=== PATIENT | male | born 1950 | race Caucasian/White ===

== ENCOUNTER 2019-05-05 05:00 | Observation (INO) ==
--- NOTE | 2019-03-31 11:19 | PAT Medication Instructions ---
Medication Instructions Date of Service March 31, 2019 Home Medications aspirin 325 mg tablet,delayed release 325 mg PO QAM atorvastatin 20 mg tablet 20 mg PO QAM cholecalciferol (vitamin D3) 4,000 unit capsule 4,000 units PO QAM lisinopril 5 mg tablet 5 mg PO QAM meloxicam 15 mg tablet 15 mg PO QAM metoprolol tartrate 25 mg tablet 25 mg PO QAM ASK your surgeon for instructions meloxicam 15 mg tablet 15 mg PO QAM ASK your prescriber and surgeon aspirin 325 mg tablet,delayed release 325 mg PO QAM DO NOT take the morning of surgery cholecalciferol (vitamin D3) 4,000 unit capsule 4,000 units PO QAM lisinopril 5 mg tablet 5 mg PO QAM Take morning of surgery With a small sip of water, OTHERWISE NOTHING TO EAT OR DRINK AFTER MIDNIGHT: atorvastatin 20 mg tablet 20 mg PO QAM metoprolol tartrate 25 mg tablet 25 mg PO QAM Other Notes If you have any questions please call us at [phone] or [phone] or [phone] or [phone]
--- NOTE | 2019-04-03 09:56 | Anesthesiology Consultation ---
Date of Service April 03, 2019 Assessment & Plan (1) Encounter for pre-operative examination: Chart Review Chart Review: Acceptable Risk for Surgery and Patient seen in Pre Admission Testing Teaching & Discussion Pre-Anesthesia Teaching/Discussion Notes: Instructed NPO after midnight before surgery,except medications with 15 cc of water. Medication instructions provided according to the PAT guidelines. History Surgery Operation Date: 05/05/19 08:50 Proposed Procedures p Right Total Hip Arthroplasty - Chris Potter MD Height/Weight Height: 5 ft 8 in Weight: 86.1 kg Allergies Allergy/AdvReac Type Severity Reaction Status Date / Time No Known Allergies Allergy Verified 03/27/19 11:09 Medications Home Medications Medication Instructions Recorded Confirmed Last Taken aspirin 325 mg tablet,delayed 325 mg PO QAM 02/27/19 03/27/19 Unknown release atorvastatin 20 mg tablet 20 mg PO QAM 02/27/19 03/27/19 Unknown cholecalciferol (vitamin D3) 4,000 4,000 units PO QAM 02/27/19 03/27/19 Unknown unit capsule lisinopril 5 mg tablet 5 mg PO QAM 02/27/19 03/27/19 Unknown meloxicam 15 mg tablet 15 mg PO QAM 02/27/19 03/27/19 Unknown metoprolol tartrate 25 mg tablet 25 mg PO QAM 02/27/19 03/27/19 Unknown Past Medical History Medical History Appendix disease inflamed- under surveillance/no plan for surgical intervention at this time Avascular necrosis of bones of both hips Bifascicular block dating back to at least 08/05/17 History of TIAs 15+ years ago- no issues since Hyperlipidemia Hypertension Osteoarthritis Sleep apnea CPAP Exercise / Class Metabolic Activity II 4-5 Yardwork/Stairs/Walk up hill Past Surgical History Surgical History Amputation of left index finger 2/2 trauma Hx of colonoscopy Hx of foot surgery RIGHT AND LEFT BIG TOE SURGERY Past Anesthesia History No Hx of Anesthesia Complications and No Family Hx of Anesthesia Complications History of PONV No Hx of PONV and No Hx of Motion Sickness Social History Smoking Status: Light tobacco smoker tobacco type: pipe Do You Dip or Chew Tobacco: Yes (1 can/few days - advised NPO AM DOS ) Smoking End Date: QUIT REGULAR USE AGE 40'S/NOW RARE PIPE USE Hx Alcohol Use: Yes Alcohol type: beer alcohol intake frequency: holidays/special occasions only Hx Substance Use: No substance use type: does not use Review of Systems Patient denies chest pain, shortness of breath, dyspnea on exertion, cough, wheezing, palpitations. Physical Exam Vital Signs VITALS BP 127/73 P 70 TEMP 98.4 SP02 96%RA RESP 16 PHYSICAL Full neck and c-spine range of motion. Full TMJ range of motion. TMD 4 finger breaths Mallampati Score 2 Dentition: upper front teeth "glued in" Lungs: clear throughout to auscultation Cardiac: regular rate and rhythm, II/ systolic murmur Spine: normal Carotid arteries: negative bruit Extremities: left ring finger amputation Testing Laboratory Results 04/03/19 10:17 04/03/19 10:17 PT 11.9 Seconds (9.0-12.0) 04/03/19 10:17 INR 1.2 (0.9-1.1) H 04/03/19 10:17 APTT 25.8 Seconds (21.0-31.0) 04/03/19 10:17 Blood Type A Positive 04/03/19 10:17 Antibody Screen NEGATIVE 04/03/19 10:17 Electrocardiogram Date: 04/03/19 NSR at 64bpm. RBBB. LAFB. Bifascicular block. *Bifascicular block dating back to at least 07/2017. S/P stress ECHO 08/2017* Chest X-Ray Date: 04/03/19 The lungs are clear. The heart is normal in size. No pleural effusions. No pneumothorax. Supraspinatus calcific tendinitis seen within the right shoulder. Mild degenerative changes within the mid to lower thoracic spine. IMPRESSION: No acute process. Echocardiogram Date: 05/31/14 LVEF 65%. Grade I DD. TAWNYA. No significant valvular disease. Stress Test Date: 08/23/17 Type: exercise Stress ECHO/EKG negative for inducible ischemia. 93% MPHR. 8.3 METS. Mild aortic valve sclerosis.
--- NOTE | 2019-04-03 10:47 | XRay Report ---
XR chest Pre-admission PA/Lat HISTORY: Preop. COMPARISON: None. FINDINGS: The lungs are clear. The heart is normal in size. No pleural effusions. No pneumothorax. Perez praspinatus calcific tendinitis seen within the right shoulder. Mild degenerative changes within the mid to lower thoracic spine. IMPRESSION: No acute process. ACT 112: Negative or not required by law. Electronically signed by: Pablo Hawk M.D. 04/03/2019 10:46 AM
[2019-04-03 11:39] LABS: Basophils # (auto) 0.01 K/uL (0-0.2); Basophils % (auto) 0.2 %; Eosinophils # (auto) 0.02 K/uL (0-0.5); Eosinophils % (auto) 0.4 %; Hematocrit (blood only) 38.6 % (42-52); Hemoglobin 12.8 g/dL (14.0-18.0); Immature Granulocytes # (auto) 0.03 K/uL (0.00-0.02); Immature Granulocytes % (auto) 0.6 %; Lymphocytes # (auto) 1.03 K/uL (1.2-3.4); Mean Corpuscular Hemoglobin 30.1 pg (25-34); Mean Corpuscular Hgb Conc 33.2 g/dL (32-36); Mean Corpuscular Volume 90.8 fL (80-100); Mean Platelet Volume 10.2 fL (7.4-10.4); Monocytes # (auto) 0.28 K/uL (0.11-0.59); Monocytes % (auto) 5.4 %; Neutrophils # (auto) 3.79 K/uL (1.4-6.5); Neutrophils % (auto) 73.4 %; Platelet Count 296 K/uL (130-400); RDW Standard Deviation 45.8 fL (36.4-46.3); Red Blood Count 4.25 M/uL (4.7-6.1); White Blood Count 5.16 K/uL (4.8-10.8)
[2019-04-03 11:44] LABS: BUN Creatinine Ratio 22.6 (10-20); Blood Urea Nitrogen 16 mg/dl (7-18); C Reactive Protein < 0.29 mg/dl (0-0.29); Calcium 8.9 mg/dl (8.5-10.1); Carbon Dioxide 28 mmol/L (21-32); Chloride 109 mmol/L (98-107); Creatinine Clr Calc Pharmacy 106.3 ml/min; Est GFR (African American) 111.9; Est GFR (Non-African American) 96.5; Glucose 106 mg/dl (70-99); Potassium 4.2 mmol/L (3.5-5.1); Sodium 141 mmol/L (136-145)
[2019-04-03 11:49] LABS: INR 1.2 (0.9-1.1); Partial Thromboplastin Time 25.8 Seconds (21.0-31.0); Prothrombin Time 11.9 Seconds (9.0-12.0)
--- NOTE | 2019-04-03 22:44 | Electrocardiogram Report ---
Test Reason : Blood Pressure : / mmHG Vent. Rate : 064 BPM Atrial Rate : 064 BPM P-R Int : 190 ms QRS Dur : 140 ms QT Int : 444 ms P-R-T Axes : 063 125 039 degrees QTc Int : 458 ms Normal sinus rhythm Right bundle branch block Left posterior fascicular block Bifascicular block Abnormal ECG No previous ECGs available Confirmed by Jefferson Franklin ([id number]) on 04/03/2019 10:44:21 PM Referred By: Chris Potter Confirmed By:Jefferson Franklin
--- NOTE | 2019-04-28 14:50 | History and Physical Report ---
DATE OF ADMISSION: 05/05/2019 CHIEF COMPLAINT: Right hip pain. HISTORY OF PRESENT ILLNESS: The patient is a 69-year-old gentleman from [place] who presents for treatment of his right hip. He has a several year history of progressively increasing pain and discomfort in his right hip. It has gotten significantly worse over the past several months. No injury. He was seen at [facility], had an MRI which revealed avascular necrosis. He presents now for surgical treatment. He says he felt like he had a groin strain that never got better. For a while, he had trouble even getting around even with assistance devices. He has been through all kinds of medicines without any relief. He had an injection which helped temporarily. He limps more as he walks. He would like to have his hip fixed. PAST MEDICAL HISTORY: 1. Hypertension. 2. Elevated cholesterol. 3. Sleep apnea. 4. Diverticulosis. 5. Cervical spondylosis. PAST SURGICAL HISTORY: Include toe surgery. ALLERGIES: None. CURRENT MEDICINES: 1. Baclofen 10 mg 1-2 tablets up to 3 times a day. 2. Lisinopril 5 mg a day. 3. Meloxicam 15 mg a day. 4. Metoprolol 25 mg. 5. Vitamin D3. 6. Lipitor 20 mg. 7. Aspirin 325 mg once a day. SOCIAL HISTORY: A 68-year-old male. He is . Very active. Does not smoke. FAMILY HISTORY: Significant for heart disease, TIA and colon polyps. REVIEW OF HISTORY: Negative for diabetes, neurologic problem, vascular problems or bleeding disorders. Denies any chest pain or shortness of breath. No history of DVT or PE. He has had some injection of steroids but not take an oral steroids. He does drink about 5 drinks per week. PHYSICAL EXAMINATION: GENERAL: Shows a pleasant, middle-aged male, looks to be in pretty good health. HEENT: Benign. NECK: Supple with no lymphadenopathy. LUNGS: Clear to auscultation. HEART: Has regular rate and rhythm. ABDOMEN: Soft, nontender, nondistended. EXTREMITIES: Grossly neurovascularly intact except as follows. Examination of the right hip reveals patient walks with a slightly antalgic gait. Leg lengths clinically appear equal. He has got no knee effusion. He does have pain with hip rotation, particularly internal rotation. He can internally rotate to neutral. Negative straight leg raise. He is neurologically intact. X-RAYS: X-rays of the right hip were reviewed. Shows evidence of a skeletally mature patient. The AP film looks pretty normal. On the lateral, there is a subchondral fracture line below the femoral head with a little bit of collapse. MRI: MRI of the pelvis from [facility] was reviewed. Shows bilateral hip AVN. The right side was markedly worse than the left. He has got subchondral collapse. Large hip joint effusion. He has got significant bone marrow edema. Fairly localized disease on the left side. ASSESSMENT: A 68-year-old male with bilateral hip avascular necrosis, right side quite a bit more symptomatic than the left. He has undergone a collapse on the right side. He has failed conservative treatment and would like to have his hip replaced. PLAN: We talked about treatment options. We are going to proceed with right total hip replacement. The risks and benefits of this procedure were explained to the patient including but not limited to DVT, PE, , infection, neurological injury, vascular injury, bleeding problem, pain, limited range of motion, stiffness, failure to relieve symptoms, incomplete relief of symptoms, need for further surgery in future, fracture, leg length inequality, nerve palsy, dislocation, etc. The patient understands and desires to proceed. Informed consent was obtained. We did talk to him about taking his metoprolol on the morning of surgery and holding the Mobic 2 weeks preop. We would like to hold his lisinopril the morning of surgery as well. He is planning to be discharged to home.
[2019-05-05] MEDS ORDERED: METOCLOPRAMIDE HCL 10 MG TABLET PO SCH (06:00)
[2019-05-05] MEDS ORDERED: CEFAZOLIN 2000MG 2,000 MG/15 ML SYR IV SCH (06:00)
[2019-05-05] MEDS ORDERED: FAMOTIDINE 20 MG TAB PO SCH (06:00)
[2019-05-05] MEDS ORDERED: TRANEXAMIC ACID 1,000 MG **IV Intra-op IV SCH (06:00)
[2019-05-05] MEDS ORDERED: LR 500ML BOLUS, THEN 15ML/HR IV SCH (06:00)
[2019-05-05] MEDS ORDERED: SCOPOLAMINE 1.5 MG TDSY TD SCH (06:00)
[2019-05-05] MEDS ORDERED: LR 60ML/HR IV SCH (06:00)
[2019-05-05] MEDS ORDERED: GABAPENTIN 300 MG CAP PO SCH (06:00)
[2019-05-05] MEDS ORDERED: ACETAMINOPHEN 500 MG TAB PO SCH (06:00)
[2019-05-05] MEDS ORDERED: BUPIVACAINE 0.5 % 5 MG/1 ML PF 10ML VIAL ONE (06:16)
[2019-05-05] MEDS ORDERED: PROPOFOL IV EMULSION 10 MG/ML 20 ML VIAL IV ONE ×3 (06:32→08:38)
[2019-05-05] MEDS ORDERED: ONDANSETRON INJ 2 MG/ML 2 ML VIAL ONE (06:32)
[2019-05-05] MEDS ORDERED: MIDAZOLAM HCL 1 MG/ML 2ML VIAL ONE (06:32)
[2019-05-05] MEDS ORDERED: LIDOCAINE HCL 2% 2 ML VIAL/AMP(20MG/ML) INFIL ONE (06:32)
[2019-05-05] MEDS ORDERED: DEXAMETHASONE SOD INJ 4 MG/ML VIAL ONE ×2 (06:32→07:12)
[2019-05-05] MEDS ORDERED: fentaNYL citrate 100 MCG/2 ML VIAL ONE (06:32)
[2019-05-05] MEDS ORDERED: MoRPHine SULFATE PF 1 MG/ML 10 ML AMP/VIAL ONE (06:34)
[2019-05-05] MEDS ORDERED: BACITRACIN INJ 50,000 UNIT VIAL ONE (06:37)
[2019-05-05] MEDS ORDERED: BUPIVACAINE/EPINEPHRINE 0.5% MPF 1:200,000 10 ML VIAL ONE (06:38)
[2019-05-05] MEDS ORDERED: LACTATED RINGER'S 500 ML IV PRN (06:52)
[2019-05-05] MEDS ORDERED: DiphenhydrAMINE HCL 50 MG/ML VIAL IV PRN (06:52)
[2019-05-05] MEDS ORDERED: ePHEDrine sulfate 50 MG/ML AMP IV PRN (06:52)
[2019-05-05] MEDS ORDERED: NALBUPHINE HCL INJ 10 MG/ML AMP IV PRN (06:52)
[2019-05-05] MEDS ORDERED: NALOXONE HCL 0.4 MG/1 ML VIAL/CARP IV PRN ×2 (06:52→09:43)
[2019-05-05] MEDS ORDERED: NALOXONE HCL 1 MG in SODIUM CHLORIDE 0.9% 1000ML 1,000 ML IV PRN (06:52)
[2019-05-05] MEDS ORDERED: MoRPHine SULFATE PF 1 MG/ML 10 ML AMP/VIAL INT SPINAL ONE (06:52)
[2019-05-05] MEDS ORDERED: NALOXONE HCL 0.08 MG in SYRINGE 1.8 ML IV PRN (06:52)
[2019-05-05] MEDS ORDERED: ONDANSETRON INJ 2 MG/ML 2 ML VIAL IV PRN ×2 (06:52→09:43)
[2019-05-05] MEDS ORDERED: MEPERIDINE HCL 25 MG/ML CARP IV PRN (06:52)
--- NOTE | 2019-05-05 06:52 | History & Physical Bridge Note ---
Date of Service May 05, 2019 History & Physical Bridge Note I have examined the patient, reviewed the History & Physical and in the interval since the performance of the History & Physical I have noted the following changes of clinical significance: no changes noted
[2019-05-05] MEDS ORDERED: DC INTRASPINAL MORPHINE SCH (07:00)
[2019-05-05] MEDS ORDERED: NO NARCOTICS OR SEDATIVES SCH (07:00)
[2019-05-05] MEDS ORDERED: SODIUM CHLORIDE 0.9% 1000ML 1,000 ML IV SCH (07:00)
--- NOTE | 2019-05-05 08:32 | Post Operative Brief Note ---
PG Immediate Post Op with CF Date of Surgery May 05, 2019 Pre & Post Diagnosis Operation Date: 05/05/19 07:00 Pre-Op Diagnosis: Right Hip Avascular Necrosis Post-Op Diagnosis: Right Hip Avascular Necrosis I identified the patient and participated in the time-out.: Yes Procedure Operation Date: 05/05/19 07:00 Actual Procedures p Right Total Hip Arthroplasty--Uncemented(Right) - Chris Potter MD Surgeon Chris Potter MD Revenue Field Auditor [place], PATTI Estimated Blood Loss 250 Findings Consistent with Post-Op Diagnosis Fluids 2000 cc Specimens Specimen Description: A. Right Femoral Head Drains Lomeli Catheter (A 16 [place] lomeli catheter was inserted by MAX Bhagat, without difficulty, clear yellow urine obtained, output to be monitored by Anesthesia.) Anesthesia Type Spinal MAC Complications none Disposition Accompanied Patient To Recovery: Yes Disposition: Recovery Room
--- NOTE | 2019-05-05 09:03 | XRay Report ---
XR hip 1V RT w pelvis CLINICAL HISTORY: 69 years-old Male presenting with IN PACU - A/P PELVIS and LATERAL HIP . TECHNIQUE: Single frontal view of the pelvis and crosstable lateral view of the right hip were obtain ed. COMPARISON: 02/27/2019. FINDINGS: There has been interval postsurgical changes of total right hip arthroplasty. Expected soft tissue em physema. No malalignment. No periprosthetic fracture or lucency. Overlying skin yoli in the latera l right thigh. The visualized portion of the pelvis intact with exclusion of the iliac wings from the [id number]. Left hip joint congruent and without advanced degenerative change. IMPRESSION: Expected postsurgical appearance status post total right hip arthroplasty. ACT 112: Negative or not required by law. Electronically signed by: Amauri Dia M.D. 05/05/2019 9:01 AM
--- NOTE | 2019-05-05 09:13 | Anesthesiology Progress Note ---
Date of Service May 05, 2019 Anesthesia Post Procedure Vital Signs Vital Signs: Temp Pulse Pulse Resp BP Pulse Ox 05/05/19 09:08 61 12 103/58 L 95 05/05/19 09:00 62 18 96/55 L 94 05/05/19 08:50 66 18 103/56 L 96 05/05/19 08:40 72 18 106/55 L 100 05/05/19 08:33 97.9 F 74 18 105/60 99 05/05/19 05:39 98.4 F 70 18 132/76 95 Transfer of Care Handoff Completed per policy Notes Mental Status: alert / awake / arousable and participated in evaluation Patient Amnestic to Procedure: Yes Nausea / Vomiting: adequately controlled Pain: adequately controlled Airway Patency, RR, SpO2: stable & adequate BP & HR: stable & adequate Hydration State: stable & adequate Neuraxial Anesthesia: was administered and sensory block is resolving Anesthetic Complications: no major complications apparent and Pt Satisfied with anesthetic care
[2019-05-05] MEDS: SODIUM CHLORIDE 0.9% 1000ML 1,000 ML IV SCH ×2 (09:30→22:04)
[2019-05-05] MEDS ORDERED: HYDROmorphone INJ 0.5 MG/0.5 ML SYR IV PRN (09:43)
[2019-05-05] MEDS ORDERED: bisacodyL 10 MG SUPP PR PRN (09:43)
[2019-05-05] MEDS ORDERED: TRAMADOL HCL 50 MG TABLET PO PRN (09:43)
[2019-05-05] MEDS ORDERED: METOCLOPRAMIDE HCL INJ 5 MG/ML 2 ML VIAL IV PRN (09:43)
[2019-05-05] MEDS ORDERED: ALUMINUM/MAGNESIUM SUSP 30 ML UDC PO PRN (09:43)
[2019-05-05] MEDS ORDERED: TAMSULOSIN HCL 0.4 MG CAP PO PRN (09:43)
[2019-05-05] MEDS ORDERED: MAGNESIUM HYDROXIDE SUSP 30 ML UDC PO PRN (09:43)
[2019-05-05] MEDS: METOPROLOL TARTRATE 25 MG TAB PO SCH (10:06)
[2019-05-05] MEDS: ATORVASTATIN 20 MG TAB PO SCH (10:06)
[2019-05-05] MEDS: lisinopriL 5 MG TAB PO SCH (10:07)
[2019-05-05] MEDS: DOCUSATE SODIUM 100 MG CAP PO SCH ×2 (10:33→22:04)
[2019-05-05] MEDS: CHOLECALCIFEROL 1,000 UNITS 25 MCG TAB PO SCH (10:33)
[2019-05-05] MEDS: MULTIVITAMIN TAB PO SCH (10:33)
[2019-05-05] MEDS: ASPIRIN 81 MG ECTAB PO SCH ×2 (10:33→22:04)
[2019-05-05] MEDS ORDERED: INFLUENZA Vaccine HIGH DOSE 65+yrs 0.5 mL Syr IM ONE (10:45)
[2019-05-05] MEDS: KETOROLAC TROMETHAMINE 15 MG/ML VIAL IV SCH ×3 (12:34→23:11)
--- NOTE | 2019-05-05 13:30 | Operative Report ---
Post Operative Report Pre & Post Diagnosis Operation Date: 05/05/19 07:00 Pre-Op Diagnosis: Right Hip Avascular Necrosis Post-Op Diagnosis: Right Hip Avascular Necrosis I identified the patient and participated in the time-out.: Yes Procedure Operation Date: 05/05/19 07:00 Actual Procedures p Right Total Hip Arthroplasty--Uncemented(Right) - Chris Potter MD Surgeon Chris Potter MD Information Management Manager [place], PAC Estimated Blood Loss 250 Findings Consistent with Post-Op Diagnosis Operative findings revealed the appearance of avascular necrosis with subchondral fracture and a soft articular surface which was ballotable. He had a moderate-sized joint effusion. Not a lot of osteophyte formation. Fluids 2000 cc. Specimens Right femoral head sent for pathology. Drains None. Anesthesia Type Spinal MAC Complications none Disposition Accompanied Patient To Recovery: Yes Disposition: Recovery Room Indications Patient is a 69-year-old gentleman is had a several year history of increasing right hip pain discomfort. Is been through extensive conservative treatment. He had x-rays which were initially pretty normal and then an MRI which showed a pretty extensive avascular necrosis of the femoral head. It shows subchondral fracture and collapse. He will see he had a significant joint effusion. Patient had failed conservative treatment elected proceed with surgical treatment. Description of Procedure Operative implants consist of: 1. Biomet size 54 G7 acetabular shell. 2. 6.5 cancellus acetabular screws 1 of 35 mm in length and 1 of 30 mm length. 3. An apex hole eliminator. 4. Highly cross-linked polyethylene liner with a 54 mm outer diameter and 36 mm inner diameter with a rodriguez placed inferior and posterior. 5. Size 12 [place] Corail KLA femoral stem. 6. +5/36 mm ceramic articular ball. Patient was taken to the operating room identified and placed on the operating table supine position protectors were properly padded. IV antibiotics arrived by anesthesia team. Spinal anesthetic had been implemented holding area. Walker catheter was placed in sterile fashion with the patient then placed in the left lateral decubitus position. Axillary roll was placed. The Stulberg hip positioner was used for positioning. The right hip and leg were then prepped and draped in usual sterile fashion. A posterior lateral approach to the right hip was then performed to a curvilinear incision centered over the greater trochanter. Sharp dissection was gone through subcutaneous tissue down below the IT band gluteal fascia the IT band gluteal fascia were incised longitudinally in line with skin incision. The underlying greater trochanteric bursa was then excised. The piriformis, external rotators, and posterior capsule were then released from the posterior aspect of the hip joint as a single layer. Great care was taken throughout the procedure to protect the sciatic nerve at all times. Hip was internally rotated and dislocated. Femoral neck osteotomy cut was made with Final Cut 15 mm above the lesser trochanter. Femoral head was removed and sent for pathology. The femur was retracted anteriorly. Attention drawn the acetabulum. The acetabular labrum was excised. The pulmonary fat was excised. Sequential reaming the acetabular was then performed performed again with size 45 and progressing up to 53. A 54 mm Biomet G7 acetabular shell was then placed in about 40 degrees lateral opening and 20 degrees of anteversion. It was fixed with two 6.5 cancellus acetabular screws. A trial liner was placed. Attention then drawn the femur. Proximal femur was entered with a cookie-cutter followed by canal finder. I then broached begin the size 8 and progressing up to a 12. We got excellent fitted 12. Calcar reamer was used smooth and off the calcar. I then trialed the hip and the +5 articular ball we created full stability in extension and external rotation and flexion to 90 degrees internal rotation over 50 degrees. Leg lengths seemed appropriate. We elect to place these implants. I did place a rodriguez inferior and posterior to maximize his stability in flexion. All trial implants were removed. An apex hole eliminator was placed. A highly cross-linked polyethylene liner was placed with a rodriguez inferior and posterior. A [place] size 12 KLA femoral stem was impacted in position. A +5/36 mm ceramic articular ball was placed. Hip was located once again found to be stable. A ttention drawn toward closing. The wound was irrigated copious also pulsatile lavage solution. I did inject locally with 60 cc of half percent Marcaine with epinephrine. The posterior capsule and external rotators were then repaired through drill holes in the posterior trochanter with #2 Tycron suture. The IT band gluteal fascia then closed in 1 PDS suture in running fashion. The subcutaneous tissue then closed in 2 layers with a deep layer #1 Vicryl suture in the subcutaneous tissues with 2-0 Dexon suture in a buried interrupted fashion the skin was closed skin yoli. Leg was then cleaned dried and sterile dressing composed of Xeroform, 4 x 4's, sterile ABD pad and foam tape was applied. Patient then transferred to the recovery room in stable condition. Patient tolerated procedure well no complications. I attest to the content of the Intraoperative Record and any orders documented therein. Any exceptions are noted below.
[2019-05-05] MEDS: ACETAMINOPHEN 500 MG TAB PO SCH ×2 (13:57→22:04)
[2019-05-05] MEDS: CEFAZOLIN 2000MG 2,000 MG/15 ML SYR IV SCH ×2 (13:58→22:05)
[2019-05-05] MEDS ORDERED: TRANEXAMIC ACID / 0.7% NACL 1,000 MG/100 ML BAG IV SCH (14:30)
[2019-05-05] MEDS: CHECK SCOPOLAMINE PATCH PLACEMENT SCH ×2 (16:27→23:11)
[2019-05-05] MEDS: FERROUS GLUCONATE 324 MG TAB PO SCH (17:39)
[2019-05-05] MEDS: ASCORBIC ACID 500 MG TAB PO SCH (17:39)
--- NOTE | 2019-05-05 18:11 | Progress Note ---
DATE: 05/05/2019 SUBJECTIVE: A 69-year-old gentleman postoperative from a right hip replacement done for AVN. He is doing well. He is siting up in chair. He denies any significant pain. No chest pain, shortness of breath. Not feeling dizzy or lightheaded. OBJECTIVE: VITAL SIGNS: Temperature is 36.9. Vital signs stable. GENERAL: Reveals a pleasant middle-aged male, sitting up in his bedside chair, talking to his , he looks comfortable. LUNGS: Clear to auscultation. HEART: Regular rate and rhythm. ABDOMEN: Soft, nontender, nondistended. EXTREMITIES: Grossly neurovascularly intact except as follows. Examination of the right leg reveals the dressing to be clean, dry and intact. The leg lengths equal. Hip was located. He is neurologically intact. X-RAYS: X-rays of the right hip from recovery room reviewed. It shows right uncemented total hip arthroplasty. The components looked to be in good position. No signs of problems. ASSESSMENT: A 69-year-old gentleman postop from a right hip replacement, doing well. His hip is located. He is neurologically intact. His pain is controlled. PLAN: 1. DVT prophylaxis include thigh-high TEDs, SCDs and aspirin twice day. 2. PT, OT and weightbear as tolerated. Right total hip protocol. 3. Pain control. Doing well with current pain regimen. 4. IV antibiotics x24 hours. 5. Disposition: Plan to discharge to home with some home health once adequately recovered and medically stable.
[2019-05-05] MEDS ORDERED: SENNA 8.6 MG TAB PO SCH (21:00)
[2019-05-06 06:03] LABS: Basophils # (auto) 0.02 K/uL (0-0.2); Basophils % (auto) 0.3 %; Eosinophils # (auto) 0.03 K/uL (0-0.5); Eosinophils % (auto) 0.5 %; Hematocrit (blood only) 35.7 % (42-52); Hemoglobin 11.8 g/dL (14.0-18.0); Lymphocytes % (auto) 17.3 %; Mean Corpuscular Hemoglobin 30.2 pg (25-34); Mean Corpuscular Hgb Conc 33.1 g/dL (32-36); Mean Corpuscular Volume 91.3 fL (80-100); Mean Platelet Volume 10.8 fL (7.4-10.4); Monocytes # (auto) 0.62 K/uL (0.11-0.59); Monocytes % (auto) 9.7 %; Neutrophils % (auto) 72.2 %; Platelet Count 190 K/uL (130-400); RDW Coefficient of Variation 14.1 % (11.5-14.5); RDW Standard Deviation 47.2 fL (36.4-46.3); Red Blood Count 3.91 M/uL (4.7-6.1); White Blood Count 6.37 K/uL (4.8-10.8)
[2019-05-06] MEDS: KETOROLAC TROMETHAMINE 15 MG/ML VIAL IV SCH ×2 (06:14→12:41)
[2019-05-06] MEDS: ACETAMINOPHEN 500 MG TAB PO SCH ×2 (06:15→13:21)
[2019-05-06] MEDS: SODIUM CHLORIDE 0.9% 1000ML 1,000 ML IV SCH (06:16)
[2019-05-06 06:33] LABS: BUN Creatinine Ratio 19.2 (10-20); Calcium 8.2 mg/dl (8.5-10.1); Creatinine Clr Calc Pharmacy 98.5 ml/min; Est GFR (African American) 108.8; Est GFR (Non-African American) 93.9; Potassium 4.1 mmol/L (3.5-5.1)
[2019-05-06] MEDS: CHECK SCOPOLAMINE PATCH PLACEMENT SCH (08:39)
[2019-05-06] MEDS: MULTIVITAMIN TAB PO SCH (08:40)
[2019-05-06] MEDS: FERROUS GLUCONATE 324 MG TAB PO SCH (08:40)
[2019-05-06] MEDS: lisinopriL 5 MG TAB PO SCH (08:40)
[2019-05-06] MEDS: ASCORBIC ACID 500 MG TAB PO SCH (08:40)
[2019-05-06] MEDS: CHOLECALCIFEROL 1,000 UNITS 25 MCG TAB PO SCH (08:40)
[2019-05-06] MEDS: DOCUSATE SODIUM 100 MG CAP PO SCH (08:40)
[2019-05-06] MEDS: ATORVASTATIN 20 MG TAB PO SCH (08:41)
[2019-05-06] MEDS: METOPROLOL TARTRATE 25 MG TAB PO SCH (08:41)
[2019-05-06] MEDS: ASPIRIN 81 MG ECTAB PO SCH (08:41)
--- NOTE | 2019-05-06 09:21 | Progress Note ---
DATE: 05/06/2019 SUBJECTIVE: A 69-year-old gentleman postop day 1 from right hip replacement. He is doing pretty well. He was a little bit confused last evening and they moved him closer to the nursing area. He seems better this morning. Denies any significant pain. No chest pain or shortness of breath. Not feeling dizzy or lightheaded. OBJECTIVE: VITAL SIGNS: Temperature 37.1. Vital signs are stable. GENERAL: Shows a pleasant, middle-aged male. He is sitting up in his bedside chair, looks pretty comfortable. EXTREMITIES: Examination of the right leg reveals the dressing to be clean, dry and intact. His thigh is soft and supple. Just a little bit of swelling. Hip is located. He is neurologically intact. LABORATORY DATA: Hemoglobin is 11.8. Hematocrit 35.7. Electrolytes are stable. ASSESSMENT: A 69-year-old gentleman postoperative day 1 from right hip replacement, doing pretty well. A little confusion yesterday, which seems to have cleared. Not too unusual. He appears medically stable. His pain is controlled. Hip is located. He is neurologically intact. PLAN: 1. DVT prophylaxis including thigh-high TEDs, SCDs, and aspirin twice a day. 2. PT/OT. Weight bear as tolerated. Right total hip protocol. 3. Pain control, doing well with current pain regimen. We are going to try and limit pain medicines to avoid confusion. 4. Disposition: Plan to discharge to home with some home health likely later today if he is doing okay tomorrow depending on how his confusion and his mobilization proceeds today.
--- NOTE | 2019-05-09 15:12 | Discharge Summary ---
ADMITTING PHYSICIAN AND SURGEON: Dr. Chris Potter. ADMITTING DIAGNOSIS: Right hip avascular necrosis. SURGERY PERFORMED: Right total hip arthroplasty. SECONDARY DIAGNOSES: Hypertension, elevated cholesterol, sleep apnea, diverticulitis and cervical spondylosis. CONSULTS: None obtained. HISTORY AND PHYSICAL EXAMINATION: Well documented in the patient's chart. HOSPITAL COURSE: The patient was admitted on 05/05/2019 underwent total hip arthroplasty, tolerated the procedure well. There were no complications. He was transferred to the PACU postop and later to the orthopedic floor for further care. He was given Ancef for antibiotic prophylaxis, MOHAN stockings, SCDs and aspirin for DVT prophylaxis. Hemoglobin, hematocrit and vital signs were monitored during his hospital stay and remained stable, did not require any blood transfusions. There were no complications. By postoperative day 1 he was tolerating a regular diet, pain was controlled with oral pain medicine. He was participating in physical therapy. Postop day 1 he was discharged home, set up with home health services, given printed given printed discharge instructions as well as new prescriptions for extra strength Tylenol, aspirin, iron supplement and tramadol. Continue his home medicines. Continue physical therapy, weightbearing as tolerated, MOHAN stockings, total hip precautions. Follow up approximately 2 weeks postop or sooner if there are any problems or concerns.
== END 2019-05-06 13:57 | disposition home health service (06) ==
LOC: ASU 05:00 → 3E 05:00

== ENCOUNTER 2023-10-06 06:16 | Observation (INO) ==
--- NOTE | 2023-08-18 12:05 | PAT Medication Instructions ---
Medication Instructions Date of Service August 18, 2023 Home Medications Medication Instructions Recorded Bin Peterse #1 ea 05/18/19 Bin Peterse #1 ea 05/18/19 atorvastatin 20 mg tablet (Lipitor) 20 mg PO QAM cholecalciferol (vitamin D3) 100 mcg (4,000 unit) capsule 4,000 units PO QAM lisinopril 5 mg tablet 5 mg PO QAM meloxicam 15 mg tablet 15 mg PO QAM metoprolol tartrate 25 mg tablet 25 mg PO QAM aspirin 325 mg capsule 325 mg PO QAM potassium gluconate 1 tab PO DAILY ASK your surgeon for instructions meloxicam 15 mg tablet 15 mg PO QAM ASK your prescriber and surgeon aspirin 325 mg capsule 325 mg PO QAM DO NOT take the morning of surgery cholecalciferol (vitamin D3) 100 mcg (4,000 unit) capsule 4,000 units PO QAM lisinopril 5 mg tablet 5 mg PO QAM potassium gluconate 1 tab PO DAILY Take morning of surgery With a small sip of water, OTHERWISE NOTHING TO EAT OR DRINK AFTER MIDNIGHT: atorvastatin 20 mg tablet (Lipitor) 20 mg PO QAM metoprolol tartrate 25 mg tablet 25 mg PO QAM Other Notes If you have any questions please call us at [phone] or [phone] or [phone] or [phone]
--- NOTE | 2023-08-25 10:28 | Anesthesiology Consultation ---
Date of Service August 25, 2023 Assessment & Plan (1) Encounter for pre-operative examination: Chart Review Chart Review: Acceptable Risk for Surgery and Patient seen in Pre Admission Testing - Patient is NOT an ideal OPJ candidate (currently 23 hour obs) Per PAT appt on 08/25/23, no recent illness/disease exposures, illness related symptoms, or recent illness/disease positive tests. Will leave to surgeon's discretion if preop Covid testing needed Right CHANTAL 05/05/19= Done under SAB at L4-5 with 1 attempt Teaching & Discussion Pre-Anesthesia Teaching/Discussion Notes: Instructed NPO after midnight before surgery,except medications with 15 cc of water. Medication instructions provided according to the [facility] guidelines. History Surgery Operation Date: 10/01/23 07:00 Proposed Procedures p Left Total Hip Arthroplasty - Chris Potter MD Height/Weight Height: 5 ft 7 in Weight: 84.9 kg Allergies Allergy/AdvReac Type Severity Reaction Status Date / Time No Known Allergies Allergy Verified 08/17/23 12:14 Medications Home Medications Medication Instructions Recorded Confirmed Last Taken atorvastatin 20 mg tablet (Lipitor) 20 mg PO QAM 02/27/19 08/17/23 09/02/21 06:30 cholecalciferol (vitamin D3) 100 4,000 units PO QAM 02/27/19 08/17/23 09/02/21 06:30 mcg (4,000 unit) capsule lisinopril 5 mg tablet 5 mg PO QAM 02/27/19 08/17/23 09/01/21 meloxicam 15 mg tablet 15 mg PO QAM 02/27/19 08/17/23 09/02/21 06:30 metoprolol tartrate 25 mg tablet 25 mg PO QAM 02/27/19 08/17/23 09/02/21 06:30 Bin Hose #1 ea 05/18/19 08/25/21 Unknown Bin Hose #1 ea 05/18/19 08/25/21 Unknown aspirin 325 mg capsule 325 mg PO QAM 08/14/21 08/17/23 09/02/21 06:30 potassium gluconate 1 tab PO DAILY 08/17/23 08/17/23 Unknown Past Medical History Medical History (Updated 08/25/23 @ 11:16 by Lilliam Baca PA-C) Bifascicular block History of- dating back to at least 08/05/17 EKG from [facility] appt 08/25/23 shows only RBBB Cardiac murmur PCP monitors No significant murmur noted at [facility] appt 08/25/23 Carotid stenosis <50% stenosis to bilateral ICAs History of anesthesia reaction "goes a little crazy; after right hip sx he removed his IV on his own and doesn't remember doing it" History of COVID-19 Beginning of Apr 2021 - tested at [facility] office - not hospitalized - cold like symptoms - pt had an outpatient infusion - resolved History of TIAs ~2004, no issues since Hyperlipidemia Hypertension Osteoarthritis fingers and shoulders Sleep apnea CPAP Exercise / Class Metabolic Activity II 4-5 Yardwork/Stairs/Walk up hill (one flight of stairs - no chest pain or SOB ) Past Family History Family History Mother Multiple sclerosis Father Coronary heart disease Uncle Coronary heart disease Myocardial infarction Uncle Cancer Uncle Aneurysm Past Surgical History Surgical History (Updated 08/23/23 @ 13:14 by Lilliam Baca PA-C) 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 History of right hip replacement Hx of cataract extraction left/right Hx of colonoscopy Hx of detached retina repair right eye 2x Hx of foot surgery right and left big toe Past Anesthesia History No Hx of Anesthesia Complications (with exception to combativeness post op with right CHANTAL and eye surgery ) and No Family Hx of Anesthesia Complications History of PONV No Hx of PONV and No Hx of Motion Sickness Social History Smoking Status: Former smoker tobacco type: cigarettes Do You Dip or Chew Tobacco: No (quit years ago) Smoking End Date: age 47 Hx Alcohol Use: Yes Alcohol type: wine alcohol intake frequency: holidays/special occasions only Hx Substance Use: No substance use type: does not use Review of Systems Patient denies chest pain, shortness of breath, dyspnea on exertion, reflux, cough, wheezing, palpitations. No hx of seizures, [place]. No hx of blood clots or blood transfusions Physical Exam Vital Signs VITALS BP 107/70 P 75 TEMP 98.1 SP02 95% RESP 16 Constitutional no acute distress ENMT Mouth: no TMJ clicking Thyromental Distance: > or= 3.5 Finger Breadths (3.5) Mallampati Class: II Missing molar Top front teeth capped Neck neck extension not limited Respiratory normal respiratory effort; no respiratory distress Auscultation: lungs clear to auscultation bilaterally; no wheezes Cardiovascular Rate/Rhythm: regular rate and regular rhythm Heart Sounds: no murmur Vessels: no carotid bruit Musculoskeletal Spine: no pain with cervical ROM Extremities: extremities normal to inspection Partial amputation left 4th finger Psychiatric Orientation: alert Lab Results Anesthesia Preop Results Results Anesthesia Widget: WBC 4.73 K/ul (4.8-10.8) L 08/25/23 Hgb 14.6 g/dl (14.0-18.0) 08/25/23 Hct 41.9 % (42.0-52.0) L 08/25/23 Plt 251 K/uL (130-400) 08/25/23 Na 137 mmol/L (136-145) 08/25/23 K 4.0 mmol/L (3.5-5.1) 08/25/23 Cl 103 mmol/L (98-107) 08/25/23 CO2 28 mmol/L (21-32) 08/25/23 BUN 15 mg/dl (6-23) 08/25/23 Creat 0.80 mg/dl (0.6-1.4) 08/25/23 Glucose Level 103 mg/dl (70-99(Fasting)) H 08/25/23 PT 11.6 Seconds (9.0-12.0) 08/25/23 PTT 26 Seconds (21-31) 08/25/23 INR 1.1 (0.9-1.1) 08/25/23 Blood Type A Positive 08/25/23 Antibody Screen NEGATIVE 08/25/23 Testing Electrocardiogram Date: 08/25/23 Findings: + NSR @ (69bpm) RBBB When compared to EKG from Apr 03, 2019- no significant change was found per cardio Chest X-Ray Date: 08/25/23 FINDINGS: Lung volumes are normal. Lungs are clear. Nipple shadows project over the chest. There is no pneumothorax or pleural effusion. Cardiac size is normal. Mediastinal contours are normal. There is no evidence for pulmonary edema. IMPRESSION: No acute cardiopulmonary findings. Echocardiogram Date: 08/14/19 EF: 59% LV Function: normal RWMA: + none Other Findings: + diastolic dysfunction (Grade 1); no LVH Right atrium mildly enlarged Aortic valve has 3 leaflets. Mild focal calcification on the NCC and LCC. Mild OK Stress Test Date: 08/23/17 Type: exercise Stress ECHO/EKG negative for inducible ischemia. 93% MPHR. 8.3 METS. Mild aortic valve sclerosis. Other Testing Carotid duplex 05/26/2023 = less than 50% stenosis of the right and left internal carotid arteries. Antegrade flow to both vertebral arteries. Holter monitor 02/10/2023 = 24-hour duration. Dominant rhythmNSR. Minimum HR 61 bpm. Maximum HR 166 bpm. Average HR 88 bpm. PACsrare. There appeared to be runs of SVT (there is significant baseline artifact interferes with interpretation) may possibly be episodes of atrial tachycardia. PVCs were rare. Patient symptoms correlated with sinus rhythm and sinus tachycardia.
--- NOTE | 2023-09-25 10:57 | History & Physical Report ---
Date of Service September 25, 2023 Assessment & Plan (1) Degenerative joint disease of left hip: 73-year-old male with a history of a right hip replacement done about 4 years ago for AVN with progressive left hip pain discomfort consistent with AVN with a subchondral fracture and progressive arthritis. He would like to have his hip fixed. Plan: When taken to the operating room do a left total hip placement. Cement this procedure once again explained to the patient in depth include but not limited to DVT PE infection neurological injury vascular bleeding palm pain limb range of motion sepsis fairly with symptoms incomplete relief of symptoms need for further surgery in future excetra. The patient understands and desires to proceed. Informed consent was obtained. He is planning discharge to home using [facility] home health program. His will assist in his care. Will use aspirin for DVT prophylaxis. He will need to hold his lisinopril the morning of surgery and take the metoprolol. (2) Avascular necrosis of bones of both hips: (3) History of right hip replacement: (4) History of TIAs: History of Present Illness Chief Complaint: . Progressive left hip pain. Primary Care Provider: Ramona Angulo PA-C . Patient is a 73-year-old gentleman 1 week from previous right hip replacement done for AVN about 4 years ago. The right is done great. Over the past several years he has developed increased pain discomfort of the left hip. He has known history of AVN on the side from an MRI done at [facility] in 2019. He did not have collapse or problems at that time was only having right hip symptoms. He has been through conservative treatment occluding medicines and injection which have become less successful. He limps more as the day goes on. Very happy with the left hip would like to have his right hip replaced. Allergies Allergy/AdvReac Type Severity Reaction Status Date / Time No Known Allergies Allergy Verified 08/17/23 12:14 Home Medications Medication Instructions Recorded Confirmed Type atorvastatin 20 mg tablet (Lipitor) 20 mg PO QAM 02/27/19 08/17/23 History cholecalciferol (vitamin D3) 100 4,000 units PO QAM 02/27/19 08/17/23 History mcg (4,000 unit) capsule lisinopril 5 mg tablet 5 mg PO QAM 02/27/19 08/17/23 History meloxicam 15 mg tablet 15 mg PO QAM 02/27/19 08/17/23 History metoprolol tartrate 25 mg tablet 25 mg PO QAM 02/27/19 08/17/23 History Bin Hose #1 ea 05/18/19 08/25/21 Rx Bin Hose #1 ea 05/18/19 08/25/21 Rx aspirin 325 mg capsule 325 mg PO QAM 08/14/21 08/17/23 History potassium gluconate 1 tab PO DAILY 08/17/23 08/17/23 History Wheeled Walker #1 ea 09/13/23 Rx Past Med/Surg History Problem List Trochanteric bursitis, left hip Strain of left hip Degenerative joint disease of left hip History of total right hip replacement Encounter for pre-operative examination Avascular necrosis of bones of both hips Medical History Carotid stenosis <50% stenosis to bilateral ICAs History of anesthesia reaction "goes a little crazy; after right hip sx he removed his IV on his own and doesn't remember doing it" Cardiac murmur PCP monitors No significant murmur noted at PAT appt 08/25/23 History of COVID-19 Beginning of Apr 2021 - tested at [facility] office - not hospitalized - cold like symptoms - pt had an outpatient infusion - resolved Bifascicular block History of- dating back to at least 08/05/17 EKG from PAT appt 08/25/23 shows only RBBB Osteoarthritis fingers and shoulders History of TIAs ~2004, no issues since Hyperlipidemia Hypertension Sleep apnea CPAP Surgical History 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 Hx of detached retina repair right eye 2x Hx of cataract extraction left/right History of right hip replacement Hx of colonoscopy Hx of foot surgery right and left big toe Family History Mother Multiple sclerosis Father Coronary heart disease Uncle Coronary heart disease Myocardial infarction Uncle Cancer Uncle Aneurysm Social History Smoking Status: Former smoker Second Hand Exposure: No; Do You Dip or Chew Tobacco: No (quit years ago); Hx Alcohol Use: Yes Alcohol type: wine Hx Substance Use: No Preferred Language: Eritrean Communication Ability: Effective Cloth Beamer Required: No Beliefs That Will Affect Care: None marital status: Current Living Situation: Spouse Feels Safe at Home: Yes Assistive Devices: CPAP and Hearing Aid - Bilateral Review of Systems All systems reviewed & are unremarkable except as noted in HPI & below. Physical Exam . Physical examination reveals a pleasant middle-age male. Looks in pretty good health. Examination of the hips reveal patient ambulates with a bit of a limp. The left leg is about half centimeter shorter than the right. Does have pain with any type of hip motion. He can internally rotate to neutral. Negative straight leg raise. No knee effusion. He is neurologically intact. Examination the right hip reveals a well-healed incision. No pain with hip motion. He is neurologically intact. Results & Data Results & Data Laboratory Results . Diagnostic Findings . MRI of the hip sent from [facility] in 2019 shows a AVN of the left femoral head. No segment collapse at that time. X-rays of the right hip were reviewed. Did use a more recent films. Shows progressive hip arthritis. He has a little bit of a subchondral fracture of the femoral head. PG Care Time/CCT Total # of Minutes Spent Total Time Spent with Patient: Total time spent is greater than 50% in coordination of care (as documented) at patient's floor/unit and/or counseling patient: Coding Level of Care Code None Diagnoses Degenerative joint disease of left hip M16.12 Avascular necrosis of bones of both hips M87.051; M87.052 History of right hip replacement Z96.641 History of TIAs Z86.73
[~2023-10-06 06:16] MED LIST: ATROPINE SULFATE 0.1 MG/ML 10ML SYR IV PRN; HYDROmorphone INJ 2 MG/ML SYR/VIAL IV PRN; ONDANSETRON INJ 2 MG/ML 2 ML VIAL IV PRN; ePHEDrine sulfate 50 MG/ML AMP IV PRN
[2023-10-06] MEDS ORDERED: BUPIVACAINE 0.5 % 5 MG/1 ML PF 10ML VIAL ONE (06:20)
--- NOTE | 2023-10-06 06:46 | History & Physical Bridge Note ---
Date of Service October 06, 2023 History & Physical Bridge Note I have examined the patient, reviewed the History & Physical and in the interval since the performance of the History & Physical I have noted the following changes of clinical significance: no changes noted
[2023-10-06] MEDS: METOCLOPRAMIDE HCL 10 MG TABLET PO SCH ×2 (07:10→11:20)
[2023-10-06] MEDS: FAMOTIDINE 20 MG TAB PO SCH ×2 (07:10→11:19)
[2023-10-06] MEDS: dexAMETHasone**PF** 10 MG/ML VIAL IV SCH ×2 (07:10→11:19)
[2023-10-06] MEDS: ACETAMINOPHEN 500 MG TAB PO SCH ×3 (07:10→13:00)
[2023-10-06] MEDS: CeleBREX 200 MG CAP PO SCH ×2 (07:10→11:19)
[2023-10-06] MEDS: LR 60ML/HR IV SCH ×2 (07:11→11:20)
[2023-10-06] MEDS: LR 500ML BOLUS, THEN 15ML/HR IV SCH ×2 (07:11→11:20)
[2023-10-06] MEDS ORDERED: PROPOFOL IV EMULSION 10 MG/ML 20 ML VIAL IV ONE ×2 (07:29→10:02)
[2023-10-06] MEDS ORDERED: MIDAZOLAM HCL 1 MG/ML 2ML VIAL ONE (07:29)
[2023-10-06] MEDS: TRANEXAMIC ACID 1,000 MG **IV Pre-op IV SCH ×2 (08:31→11:20)
[2023-10-06] MEDS: ceFAZolin 2000MG 2,000 MG/15 ML SYR IV SCH ×3 (09:00→16:37)
[2023-10-06] MEDS ORDERED: PHENYLEPHRINE 100MCG/ML 10ML SYR IV ONE (09:14)
[2023-10-06] MEDS: BUPIVACAINE/EPINEPHRINE 0.5% MPF 1:200,000 30 ML VIAL ONE (09:42)
--- NOTE | 2023-10-06 10:39 | Operative Report ---
PG Post Operative Report Pre & Post Diagnosis Operation Date: 10/06/23 08:50 Pre-Op Diagnosis: Left Hip Degenerative Joint Disease due to Avascular Necrosis Post-Op Diagnosis: Left Hip Degenerative Joint Disease due to Avascular Necrosis I identified the patient and participated in the time-out.: Yes Procedure Operation Date: 10/06/23 08:50 Actual Procedures p Left Total Hip Arthroplasty, Uncemented(Left) - Chris Potter MD Surgeon Chris Potter MD Bathhouse Keeper Dallas Ghotra PA-C Estimated Blood Loss 200 Findings Consistent with Post-Op Diagnosis Operative findings revealed advanced arthritis secondary to avascular necrosis femoral head. He had delamination of the cartilage of the superior aspect of the femoral head and almost the entire superior aspect. Moderate-sized joint effusion. Fairly tight soft tissue envelope. Specimens Left femoral head sent for pathology. Anesthesia Type Spinal MAC Complications none Disposition Accompanied Patient To Recovery: No Indications Patient 73-year-old fairly active gentleman whose had a long history of hip problems. He underwent a right hip replacement done about 4 years ago for avascular necrosis. He had an MRI at that point did which did reveal a vast necrosis of the left femoral head but really did not have symptoms. He had no collapse. Over the past year he developed increased pain discomfort to left hip which become more debilitating. X-rays show progressive hip arthritis and collapse of the femoral head. Patient elected proceed with surgical treatment. Description of Procedure Operative implants consist of: 1 Biomet G7 size 52 mm acetabular shell. 2. 6.5 cancellous acetabular screws x 3. 3. [place] hole cath lab. 4. Highly cross-linked polyethylene liner with a 52 mm outer diameter, 36 mm inner diam of the rodriguez placed inferior and posterior. 5. DePuy Karaya size 14 femoral stem. 6. +5/36 mm ceramic articular ball. The patient was taken the op room, identified, placed on the operating table in the supine position. Contractors were appropriately padded. IV antibiotics tried by anesthesia team. A spinal anesthetic and been implemented holding area. The patient was then placed in the right lateral decubitus position. An axillary roll was placed for distal Birkett position was used for positioning. Left hip and leg were then prepped and draped in usual sterile fashion. A posterolateral approach to the left hip was then performed through a curvilinear incision centered over the greater trochanter. Sharp dissection Through subcutaneous tissue down to level the IT band gluteal fascia. The IT band gluteal fascia incised longitudinally in line with skin incision. The underlying greater bursa was excised. The piriformis and external rotators along with the posterior hip joint capsule were then released from the posterior aspect the hip as a single layer. Great care was taken throughout the procedure to protect the sciatic nerve at all times. The hip was internally rotated and dislocated. Femoral neck osteotomy cut was made with Final Cut 15 mm above the lesser trochanter. Femoral head was removed and sent for pathology. The femur was retracted anteriorly. Of note, his soft tissues were quite tight and I had to do a release allowed the tissues from around the acetabulum to retract the femur anteriorly. The pulmonary fat was then excised. Sequential reaming the acetabular was then performed again with a size 45 and progressing up to 51. We reamed with a 52 reamer and then placed a 52 mm Biomet G7 acetabular shell in about 40 degrees lateral opening and 20 degrees of anteversion. It was fixed with 3 screws. I used an additional screw as I did not great great purchase with the first 2 but got excellent purchase with a third screw. A trial liner was placed. Attention drawn the femur. The proximal femur was then with a [employer] cutter followed by canal finder. I then broached beginning the size 8. We broached up to a size 14 before we got enough real tight fit to prevent any rotation. We trialed the hip and the +5 articular ball recreated tension appropriately and was fully stable. I did elect to place a rodriguez inferior and posterior just to maximize his stability in flexion. We elect to place these implants. All trial implants were removed. An apex hole cath lab was placed. Highly cross-linked polyethylene liner was placed. A size 14 KLA femoral stem was impacted in position. A +5/36 ceramic articular ball was placed. Hip was located and once again found to be stable. Attention drawn toward closing. The wounds irrigated coconuts of pulsatile lavage solution. We did inject locally with 60 cc of half percent Marcaine with epinephrine. The posterior capsule and external rotators were then repaired through drill holes in the posterior trochanter with #2 Tycron suture. The IT band gluteal fascia then closed with #1 PDS suture running fashion through subcutaneous tissues then closed with 2 layers with deep layer Vicryl suture and subcutaneous tissues with 2 Dexon suture in a buried interrupted fashion. Skin was closed skin yoli. Leg was then cleaned and dried and sterile dressing with Xeroform, 4 fours, ABD pad and foam tape was applied. The patient then transferred to the recovery in stable condition. Patient tolerated procedure well and there were no complications. Dallas Ghotra, my physician lab assistant, was present for the entire procedure. His assistance was essential and required for appropriate patient positioning, prepping and draping, surgical exposure, performing the technical details of the operation, placement the implants, closure of the wound, and placement of the sterile bandage. I attest to the content of the Intraoperative Record and any orders documented therein. Any exceptions are noted below.
--- NOTE | 2023-10-06 10:55 | XRay Report ---
XR hip 1V LT w pelvis CLINICAL HISTORY: IN PACU - Post Surgical TECHNIQUE: 1 view of the left hip and single frontal view of the pelvis were obtained. Comparison: Comparison is made to hip radiograph 05/05/2019 FINDINGS: Patient is status post total hip arthroplasty with expected postsurgical changes including soft tissu e swelling and subcutaneous emphysema. Right hip arthroplasty is seen. IMPRESSION: Expected postoperative appearance status post placement of total hip arthroplasty. ACT 112: Negative or not required by law. Electronically signed by: Luan Temple M.D. 10/06/2023 10:54 AM
--- NOTE | 2023-10-06 11:15 | Anesthesiology Progress Note ---
Date of Service October 06, 2023 Anesthesia Post Procedure Vital Signs Vital Signs: Temp Pulse Pulse Resp BP Pulse Ox O2 Del Method 10/06/23 11:00 67 17 109/61 100 Oxymask 10/06/23 10:50 72 12 107/58 L 100 Oxymask 10/06/23 10:40 86 24 101/70 100 Oxymask 10/06/23 10:34 36.7 C 79 20 114/56 L 98 Oxymask 10/06/23 06:40 36.8 C 79 18 124/75 96 Room Air O2 Flow Rate 10/06/23 11:00 3 10/06/23 10:50 5 10/06/23 10:40 5 10/06/23 10:34 7 10/06/23 06:40 Transfer of Care Handoff Completed per policy Notes Mental Status: alert / awake / arousable and participated in evaluation Nausea / Vomiting: adequately controlled Pain: adequately controlled Airway Patency, RR, SpO2: stable & adequate BP & HR: stable & adequate Hydration State: stable & adequate Neuraxial Anesthesia: was administered and sensory block is resolving Anesthetic Complications: no major complications apparent and Pt Satisfied with anesthetic care
[2023-10-06] MEDS ORDERED: bisacodyL 10 MG SUPP PR PRN (11:43)
[2023-10-06] MEDS ORDERED: ALUMINUM/MAGNESIUM SUSP 30 ML UDC PO PRN (11:43)
[2023-10-06] MEDS ORDERED: ONDANSETRON INJ 2 MG/ML 2 ML VIAL IV PRN (11:43)
[2023-10-06] MEDS ORDERED: MAGNESIUM HYDROXIDE SUSP 30 ML UDC PO PRN (11:43)
[2023-10-06] MEDS ORDERED: METOCLOPRAMIDE HCL INJ 5 MG/ML 2 ML VIAL IV PRN (11:43)
[2023-10-06] MEDS ORDERED: NON-FORMULARY MEDICATION (Potassium Gluconate 1 TAB) PO PRN (11:43)
[2023-10-06] MEDS ORDERED: NALOXONE HCL 0.4 MG/1 ML VIAL/CARP IV PRN (11:43)
[2023-10-06] MEDS: SODIUM CHLORIDE 0.9% 1,000 ML IV SCH (12:07)
[2023-10-06] MEDS: KETOROLAC TROMETHAMINE 15 MG/ML VIAL IV SCH (13:01)
[2023-10-06] MEDS: TRANEXAMIC ACID / 0.7% NACL 1,000 MG/100 ML BAG IV SCH (16:37)
[2023-10-06] MEDS: ASPIRIN 81 MG ECTAB PO SCH (20:16)
[2023-10-06] MEDS: SENNA 8.6 MG TAB PO SCH (20:16)
[2023-10-06] MEDS: DOCUSATE SODIUM 100 MG CAP PO SCH (20:16)
[2023-10-06] MEDS ORDERED: SENNA 8.6 MG TAB PO SCH (21:00)
[2023-10-06] MEDS: traMADol HCL 50 MG TABLET PO PRN (21:19)
[2023-10-07] MEDS: HYDROmorphone INJ 0.5 MG/0.5 ML SYR IV PRN (00:12)
[2023-10-07 06:04] LABS: Basophils # (auto) 0.01 K/uL (0.00-0.20); Basophils % (auto) 0.1 %; Hematocrit (blood only) 36.7 % (42.0-52.0); Hemoglobin 12.4 g/dl (14.0-18.0); Immature Granulocytes # (auto) 0.02 K/uL (0.01-0.20); Immature Granulocytes % (auto) 0.3 %; Lymphocytes # (auto) 0.87 K/uL (1.20-3.40); Lymphocytes % (auto) 11.2 %; Mean Corpuscular Hgb Conc 33.8 g/dL (32.0-36.0); Mean Corpuscular Volume 85.9 fL (80.0-100.0); Mean Platelet Volume 10.1 fL (9.4-12.4); Monocytes # (auto) 0.71 K/uL (0.11-0.59); Monocytes % (auto) 9.2 %; Neutrophils # (auto) 6.13 K/uL (1.40-6.50); Neutrophils % (auto) 79.2 %; Platelet Count 240 K/uL (130-400); RDW Coefficient of Variation 12.1 % (11.5-14.5); RDW Standard Deviation 38.1 fL (36.4-46.3); Red Blood Count 4.27 M/uL (4.70-6.10); White Blood Count 7.74 K/ul (4.8-10.8)
[2023-10-07 06:24] LABS: BUN Creatinine Ratio 17.1 (10-20); Calcium 8.7 mg/dl (8.6-10.3); Creatinine Clr Calc Pharmacy 84.7 ml/min; Est GFR (African American) 103.1 ml/min
[2023-10-07] MEDS: dexAMETHasone 10 MG in SYRINGE 0 ML IV SCH (07:35)
[2023-10-07] MEDS: METOPROLOL TARTRATE 25 MG TAB PO SCH (07:36)
[2023-10-07] MEDS: MULTIVITAMIN TAB PO SCH (07:36)
[2023-10-07] MEDS: ATORVASTATIN 20 MG TAB PO SCH (07:36)
[2023-10-07] MEDS: TAMSULOSIN HCL 0.4 MG CAP PO SCH (07:36)
[2023-10-07] MEDS: lisinopril 5 MG TAB PO SCH (07:36)
[2023-10-07] MEDS: CHOLECALCIFEROL 25 MCG (1000 UNITS) TAB PO SCH (07:36)
--- NOTE | 2023-10-07 09:17 | Orthopedic Progress Note ---
Date of Service October 07, 2023 Assessment & Plan (1) Status post left hip replacement: Pain controlled d/c planning: home with home health today dvt prophylaxis: teds, scd's, aspirin Hip precautions PT/OT wbat Subjective . 73 year old patient POD #1 from left juan. Doing well. Pain controlled. No complaints. Review of Systems All systems reviewed & are unremarkable except as noted in HPI & below. Physical Exam . alert and oriented. NAD. VSS Left leg: dressing clean, dry, intact. Hip located. Swelling minimal in his leg, NVI Results & Data Results & Data Laboratory Results . Diagnostic Findings . PG Care Time/CCT Total # of Minutes Spent Total Time Spent with Patient: Total time spent is greater than 50% in coordination of care (as documented) at patient's floor/unit and/or counseling patient: Coding Level of Care Code 86028 Post Operative Follow-Up Diagnoses Status post left hip replacement Z96.642
== END 2023-10-07 11:02 | disposition home health service (06) ==
LOC: ASU 06:16 → 3E 06:16